=== PATIENT | male | born 1960 | race Two or more races ===

== ENCOUNTER 2020-05-12 11:04 | Emergency (ER) | payer SELFPAY ==
[~2020-05-12] VITALS: Ht 157.5 cm; Wt 70.0 kg
--- NOTE | 2020-05-12 11:31 | PHYS DOC ---
Past Medical History Past Medical History: No Pertinent History (CANELO CARDENAS APRN) Smoking Status: Never Smoker Alcohol Use: None (CANELO CARDENAS APRN) General Adult EDM: Chief Complaint: COUGH HPI: HPI: Patient is a 59 year old male presents to the emergency room for evaluation of ongoing sternal chest pain with inspiration since he was diagnosed with Covid in March. He was tested negative for Covid on 04/06/2020. States he had this sternal chest pain intermittently prior to Covid however it is worse since having Covid. He still has a very mild cough, denies fevers or shortness of air. He states currently not having any pain. He does not smoke cigarettes. (CANELO CARDENAS APRN) Review of Systems: Review of Systems: Constitutional: Denies fever or chills. [] Eyes: Denies change in visual acuity. [] HENT: Denies nasal congestion or sore throat. [] Respiratory: MILD cough or DENIES shortness of breath. [] Cardiovascular: REPORTS chest pain or DENIES edema. [] GI: Denies abdominal pain, nausea, vomiting, bloody stools or diarrhea. [] : Denies dysuria. [] Musculoskeletal: Denies back pain or joint pain. [] Integument: Denies rash. [] Neurologic: Denies headache, focal weakness or sensory changes. [] Endocrine: Denies polyuria or polydipsia. [] Lymphatic: Denies swollen glands. [] Psychiatric: Denies depression or anxiety. [] (CANELO CARDENAS APRN) Heart Score: HEART Score for Chest Pain: HEART Score for Chest Pain Response (Comments) Value History Slighlty/Non-Suspicious 0 ECG Normal 0 Age >45 - < 65 1 Risk Factors No Risk Factors 0 Troponin < Normal Limit 0 Total 1 Risk Factors: Risk Factors: DM, Current or recent (<one month) smoker, HTN, HLP, family history of CAD, obesity. Risk Scores: Score 0 - 3: 2.5% MACE over next 6 weeks - Discharge Home Score 4 - 6: 20.3% MACE over next 6 weeks - Admit for Clinical Observation Score 7 - 10: 72.7% MACE over next 6 weeks - Early Invasive Strategies (CANELO CARDENAS APRN) Physical Exam: PE: Constitutional: Well developed, well nourished, no acute distress, non-toxic appearance. [] HENT: Normocephalic, atraumatic, bilateral external ears normal, oropharynx moist, no oral exudates, nose normal. [] Eyes: PERRLA, EOMI, conjunctiva normal, no discharge. [] Neck: Normal range of motion, no tenderness, supple, no stridor. [] Cardiovascular:Heart rate regular rhythm, no murmur [] Lungs & Thorax: Bilateral breath sounds clear to auscultation, no chest wall tenderness [ Abdomen: Bowel sounds normal, soft, no tenderness, no masses, no pulsatile masses. [] Skin: Warm, dry, no erythema, no rash. [] Back: No tenderness, no CVA tenderness. [] Extremities: No tenderness, no cyanosis, no clubbing, ROM intact, no edema. [] Neurologic: Alert and oriented X 3, normal motor function, normal sensory function, no focal deficits noted. [] Psychologic: Affect normal, judgement normal, mood normal. [] (CANELO CARDENAS APRN) Current Patient Data: Labs: Laboratory Tests Test 05/12/20 12:22 05/12/20 12:27 D-Dimer (Tari) 0.29 ug/mlFEU Sodium Level 139 mmol/L Potassium Level 3.9 mmol/L Chloride Level 103 mmol/L Carbon Dioxide Level 27 mmol/L Anion Gap 9 Blood Urea Nitrogen 8 mg/dL Creatinine 0.8 mg/dL Estimated GFR (Cockcroft-Gault) 98.9 BUN/Creatinine Ratio 10 Glucose Level 104 mg/dL Calcium Level 8.4 mg/dL Magnesium Level 2.2 mg/dL Total Bilirubin 0.5 mg/dL Aspartate Amino Transf (AST/SGOT) 25 U/L Alanine Aminotransferase (ALT/SGPT) 47 U/L Alkaline Phosphatase 87 U/L Troponin I Quantitative < 0.017 ng/mL ID-Vad-B-Type Natriuretic Peptide 38 pg/mL Total Protein 7.5 g/dL Albumin 3.5 g/dL Albumin/Globulin Ratio 0.9 White Blood Count 5.3 x10^3/uL Red Blood Count 4.98 x10^6/uL Hemoglobin 14.7 g/dL Hematocrit 44.1 % Mean Corpuscular Volume 89 fL Mean Corpuscular Hemoglobin 30 pg Mean Corpuscular Hemoglobin Concent 33 g/dL Red Cell Distribution Width 14.8 % Platelet Count 219 x10^3/uL Neutrophils (%) (Auto) 55 % Lymphocytes (%) (Auto) 31 % Monocytes (%) (Auto) 8 % Eosinophils (%) (Auto) 5 % Basophils (%) (Auto) 1 % Neutrophils # (Auto) 2.9 x10^3/uL Lymphocytes # (Auto) 1.6 x10^3/uL Monocytes # (Auto) 0.4 x10^3/uL Eosinophils # (Auto) 0.3 x10^3/uL Basophils # (Auto) 0.1 x10^3/uL (CANELO CARDENAS APRN) EKG: EKG: [EKG at 1142 NSR, NO STEMI, RATE 63] (CANELO CARDENAS APRN) Radiology/Procedures: Radiology/Procedures: []REASON: CHEST PAIN, COUGH PROCEDURE: PORTABLE CHEST 1V Single view of the chest. 05/12/2020 11:26 AM Indication: Reason: CHEST PAIN, COUGH / Spl. Instructions: / History: Comparison: None Findings: There is no focal consolidation. There is no pleural effusion or pneumothorax. The cardiomediastinal silhouette and pulmonary vasculature are within normal limits. No acute osseous abnormalities are seen. Impression: No evidence of acute cardiopulmonary process. Electronically signed by: Gary Sherman MD (05/12/2020 11:59 AM) [id number] (CANELO CARDENAS APRN) Course & Med Decision Making: Course & Med Decision Making Pertinent Labs and Imaging studies reviewed. (See chart for details) [] Vital signs stable, afebrile, nontoxic in appearance. Troponin negative, EKG normal sinus no STEMI, D-dimer negative. Patient with heart score of 1, low risk ACS. No previous cardiac history. Recommend follow-up with primary care doctor, return to ER for new or worsening symptoms. (CANELO CARDENAS APRN) Course & Med Decision Making I have reviewed the PA/[employer] ASSISTANT's note and Plan of Care. I was available for consultation as needed during the patient's visit in the emergency department. I agree with the clinical impression, plans and disposition. (CIARA KHAN MD) Dragon Disclaimer: Dragon Disclaimer: This electronic medical record was generated, in whole or in part, using a voice recognition dictation system. (CANELO CARDENAS APRN) Departure Departure Impression: Primary Impression: Atypical chest pain Disposition: 01 DC HOME SELF CARE/HOMELESS Referrals: NO PCP (PCP) Patient Instructions: Chest Pain (Nonspecific), [id number] Additional Instructions: Follow-up with your primary care doctor in 2 to 3 days. Return to the emergency room for new or worsening symptoms. CANELO CARDENAS APRN May 12, 2020 11:31 CIARA KHAN MD May 12, 2020 14:14
--- NOTE | 2020-05-12 12:00 | EKG ---
[facility] [address] [place] [id number] Test Date: 2020-05-12 Test Time: 11:42:10 Pat Name: ELVIA SCHAEFFER Department: Room: Gender: M Office Asst: : 1960 Requested By: CANELO CARDENAS Order Number: [id number] Reading MD: Measurements Intervals [place] Rate: 63 P: 36 SD: 164 QRS: -4 QRSD: 92 T: 3 QT: 386 QTc: 398 Interpretive Statements SINUS RHYTHM LEFTWARD AXIS OTHERWISE NORMAL ECG RI6.02 No previous ECG available for comparison
--- NOTE | 2020-05-12 12:01 | RAD ---
Single view of the chest. 05/12/2020 11:26 AM Indication: Reason: CHEST PAIN, COUGH / Spl. Instructions: / History: Comparison: None Findings: There is no focal consolidation. There is no pleural effusion or pneumothorax. The cardiomediastinal silhouette and pulmonary vasculature are within normal limits. No acute osseous abnormalities are seen. Impression: No evidence of acute cardiopulmonary process. Electronically signed by: Gary Sherman MD (05/12/2020 11:59 AM) [id number]
[2020-05-12 12:39] LABS: BASO # 0.1 x10^3/uL (0.0-0.2); BASO % 1 % (0-3); EOS # 0.3 x10^3/uL (0.0-0.7); EOS % 5 % (0-3); HEMATOCRIT 44.1 % (39.0-53.0); HEMOGLOBIN 14.7 g/dL (13.0-17.5); LYMPH # 1.6 x10^3/uL (1.0-4.8); LYMPH % 31 % (24-48); MEAN CORPUSCULAR HEMOGLOBIN 30 pg (25-35); MEAN CORPUSCULAR HGB CONC 33 g/dL (31-37); MEAN CORPUSCULAR VOLUME 89 fL (79-100); MONO # 0.4 x10^3/uL (0.0-1.1); MONO % 8 % (0-9); NEUT # 2.9 x10^3/uL (1.8-7.7); NEUT % 55 % (31-73); PLATELET COUNT 219 x10^3/uL (140-400); RED BLOOD COUNT 4.98 x10^6/uL (4.30-5.70); RED CELL DISTRIBUTION WIDTH 14.8 % (11.5-14.5); WHITE BLOOD COUNT 5.3 x10^3/uL (4.0-11.0)
[2020-05-12 12:50] LABS: CALCIUM 8.4 mg/dL (8.5-10.1); CREATININE 0.8 mg/dL (0.7-1.3); GFR 98.9; POTASSIUM 3.9 mmol/L (3.5-5.1)
[2020-05-12 12:55] LABS: ALBUMIN 3.5 g/dL (3.4-5.0); ALBUMIN/GLOBULIN RATIO 0.9 (1.0-1.7); MAGNESIUM 2.2 mg/dL (1.8-2.4); TOTAL BILIRUBIN 0.5 mg/dL (0.2-1.0); TOTAL PROTEIN 7.5 g/dL (6.4-8.2)
[2020-05-12 13:29] VITALS: BP 150/95
== END 2020-05-12 13:38 | disposition home or self-care (01) ==
LOC: ER 11:04
DX: R07.2 Precordial pain (principal); R05 Cough
CPT/HCPCS: 36415; 71045; 80053; 83735; 83880; 84484; 85025; 85379; 93005; 99285-25